=== PATIENT | female | born 1960 | race Caucasian/White ===

== ENCOUNTER → 2023-05-05 | Emergency (ER) | payer BC ==
[~2023-05-05] MED LIST: NA CHLORIDE 0.9% 1,000 ML ONE
[2023-05-05 12:28] LABS: Absolute Basophils 0.1 K/uL (0-0.5); Absolute Eosinophils 0.1 K/uL (0-0.5); Absolute Lymphocytes (CBC) 3.1 K/uL (0.7-4.9); Absolute Monocytes 0.6 K/uL (0.1-1.3); Absolute Neutrophil 8.7 K/uL (1.8-8.0); Basophils % 1.1 % (0-1.3); Eosinophils % 0.8 % (0-4.4); Hematocrit 38.6 % (36.0-45.0); Hemoglobin 12.7 g/dL (12.0-15.0); Lymphocytes % 24.5 % (15.3-44.8); MCH 29.1 pg (27.0-35.0); MCHC 32.8 g/dL (32.0-36.0); MCV 88.7 fL (80-100); MPV 9.1 fL (7.6-11.3); Monocytes % 4.5 % (3.3-12.3); Neutrophils % 69.1 % (41.7-73.7); Platelets 234 thou/uL (152-406); RBC Red Blood Cell Count 4.35 M/uL (3.86-4.86); Red Cell Distribution Width 13.4 % (12.1-15.2)
[2023-05-05 12:41] LABS: Sqamous Epithelial 20-50 /HPF (None Seen); Urine Bacteria <20 /HPF (<20); Urine Bilirubin NEGATIVE (Negative); Urine Blood 2+ (Negative); Urine Clarity Extremely Turbid (Clear); Urine Color Yellow (Yellow); Urine Culture Reflex Order NOT NEEDED; Urine Glucose NEGATIVE (Negative); Urine Ketones NEGATIVE (Negative); Urine Microscopic Reflex YN ORDER UMIC; Urine Mucus 2+ /HPF (None Seen); Urine Nitrite NEGATIVE (Negative); Urine Protein 1+ (Negative); Urine Urobilinogen Normal (Normal); Urine WBC >50 /HPF (<5); Urine pH 5.5 (5.0-7.0)
[2023-05-05 12:44] LABS: Albumin 3.6 g/dL (3.4-5.0); Anion Gap 9.6 mEq/L (5.0-15.0); Bilirubin Total 0.4 mg/dL (0.2-1.0); Globulin 3.5 g/dL (2.3-3.5); Potassium 3.6 mEq/L (3.5-5.1); Protein, Total 7.1 g/dL (6.4-8.2)
[2023-05-05 12:58] LABS: Differential Total Cells Count 100; White Blood Cell Scan OK (OK)
[2023-05-05 12:59] LABS: Blood Morphology Comment NOT SEEN (NOT SEEN); Lymphocytes 29 % (15-42); Monocytes 3 % (0-10); Platelet Estimate ADEQ; Segmented Neutrophils 67 % (40-80)
--- NOTE | 2023-05-05 13:23 | RAD REPORT ---
EXAM DESCRIPTION: CTAbdomen Pelvis W Contrast - 05/05/2023 1:12 pm CLINICAL HISTORY: Abdominal pain. ABD PAIN COMPARISON: Abdomen Pelvis W Contrast dated 05/09/2022; Abdomen Pelvis W Contrast dated 08/26/2020 ; Abdomen Pelvis W Contrast dated 02/12/2017; Abdomen Pelvis W Contrast dated 09/03/2016 TECHNIQUE: Biphasic CT imaging of the abdomen and pelvis was performed with 100 ml non-ionic IV cont rast. All CT scans are performed using dose optimization technique as appropriate and may include automated exposure control or mA/KV adjustment according to patient size. FINDINGS: The lung bases are clear. The liver, spleen, pancreas, adrenal glands and kidneys are within normal limits. No bowel obstruction, free air, free fluid or abscess. Moderate stool is present throughout the colon . Nonvisualized appendix. Prominent sigmoid diverticulosis coli is present without diverticulitis. No evidence of significant lymphadenopathy. No suspicious bony findings. IMPRESSION: No acute intra-abdominal or pelvic finding. Significant diverticulosis coli without diverticulitis.
--- NOTE | 2023-05-05 14:34 | ER ---
Nurse's Notes [facility] Name: Veronica Pratt Age: 62 yrs Sex: Female : 1960 Arrival Date: 05/05/2023 Time: 11:42 Bed 16 Private MD: Marcelino Michael C Diagnosis: UTI/ Urinary tract infection, site not specified Presentation: 05/04 11:47 Chief complaint: Patient states: Lower abdominal pain that radiates to low back for 3 nj1 weeks. Had seen PCP, dx with UTI, had a round of abx, felt somewhat better but bad again, on second round of abx, started . However, pt concerned because she had similar symptoms when she was diagnosed with diverticulitis in the past. 11:47 Coronavirus screen: Vaccine status: Patient reports receiving the 2nd dose of the covid nj1 vaccine. Ebola Screen: Patient denies travel to an Ebola-affected area in the 21 days before illness onset. Initial Sepsis Screen: Does the patient meet any 2 criteria? No. Patient's initial sepsis screen is negative. Does the patient have a suspected source of infection? No. Patient's initial sepsis screen is negative. Risk Assessment: Do you want to hurt yourself or someone else? Patient reports no desire to harm self or others. Onset of symptoms was April 2023. 11:47 Method Of Arrival: Ambulatory [facility] 11:47 Acuity: KEATON 3 nj Historical: - Allergies: 11:55 Cipro; nj1 - PMHx: 11:55 depressive disorder; nj1 - PSHx: 11:55 Cholecystectomy; right shoulder; nj1 - Immunization history:: Client reports receiving the 2nd dose of the Covid vaccine. - Social history:: Smoking status: Patient denies any tobacco usage or history of. Screenin:24 [facility] ED Fall Risk Assessment (Adult) History of falling in the last 3 months, db including since admission No falls in past 3 months (0 pts) Confusion or Disorientation No (0 pts) Intoxicated or Sedated No (0 pts) Impaired Gait No (0 pts) Mobility Assist Device Used No (0 pt) Altered Elimination No (0 pt) Score/Fall Risk Level 0 - 2 = Low Risk Oriented to surroundings, Maintained a safe environment. Abuse screen: Denies threats or abuse. Denies injuries from another. Nutritional screening: No deficits noted. Tuberculosis screening: No symptoms or risk factors identified. Assessment: 13:15 Reassessment: Patient appears in no apparent distress at this time. Patient and/or db family updated on plan of care and expected duration. Pain level reassessed. Patient is alert, oriented x 3, equal unlabored respirations, skin warm/dry/pink. General: Appears in no apparent distress. comfortable, Behavior is calm, cooperative. Pain: Complains of pain in abdomen. Neuro: Level of Consciousness is awake, alert, obeys commands, Oriented to person, place, time, situation. Cardiovascular: No deficits noted. Respiratory: No deficits noted. Airway is patent Respiratory effort is even, unlabored, Respiratory pattern is regular, symmetrical. GI: Abdomen is flat, Bowel sounds present X 4 quads. Abd is soft. : No deficits noted. No signs and/or symptoms were reported regarding the genitourinary system. EENT: No deficits noted. No signs and/or symptoms were reported regarding the EENT system. Derm: No deficits noted. No signs and/or symptoms reported regarding the dermatologic system. 14:00 Reassessment: Patient appears in no apparent distress at this time. Patient and/or db family updated on plan of care and expected duration. Pain level reassessed. Patient is alert, oriented x 3, equal unlabored respirations, skin warm/dry/pink. General: Appears in no apparent distress. comfortable, Behavior is calm, appropriate for age. 15:00 Reassessment: Patient appears in no apparent distress at this time. Patient and/or db family updated on plan of care and expected duration. Pain level reassessed. Patient is alert, oriented x 3, equal unlabored respirations, skin warm/dry/pink. General: Appears in no apparent distress. comfortable, Behavior is calm, cooperative. Vital Signs: 11:47 BP 162 / 97; Pulse 73; Resp 18; Temp 97(TE); Pulse Ox 100% on R/A; Weight 117.93 kg; nj1 Height 5 ft. 7 in. ; Pain 6/10; 13:10 BP 146 / 86; Pulse 76; Resp 18; Pulse Ox 98% on R/A; db 13:30 BP 128 / 79; Pulse 72; Resp 18; Pulse Ox 97% on R/A; db 14:30 BP 146 / 85; Pulse 72; Resp 18; Temp 97.8; Pulse Ox 99% ; db 11:47 Body Mass Index 40.72 (117.93 kg, 170.18 cm) nj1 11:47 Pain Scale: Adult sd1 ED Course: 11:44 Patient arrived in ED. mr 11:44 Marcelino Michael MD is Private Physician. mr 11:45 Alee Chaparro FNP-C is PSYCHIATRICP. kb 11:46 Hosea Clayton MD is Attending Physician. kb 11:55 Triage completed. nj1 11:55 Arm band placed on. nj1 12:10 Missed attempt(s): 22 gauge in left forearm. bc6 12:19 CBC with Diff Sent. bc6 12:19 CMP Sent. bc6 12:20 Lipase Sent. bc6 12:20 Urinalysis w/ reflexes Sent. bc6 12:20 Initial lab(s) drawn, by nc, sent to lab. Inserted saline lock: 22 gauge in left wrist, bc6 using aseptic technique. Blood collected. 13:14 CT Abd/Pelvis - IV Contrast Only In Process Unspecified. EDMS 14:33 Marcelino Michael MD is Referral Physician. kb 15:04 Bonnie Mariee, RN is Primary Nurse. db 15:24 Patient has correct armband on for positive identification. Bed in low position. Call db light in reach. Side rails up X 1. Provided Education on: LABS AND MEDICATIONS. Pulse ox on. NIBP on. Warm blanket given. 15:24 No provider procedures requiring assistance completed. IV discontinued, intact, db bleeding controlled, No redness/swelling at site. Administered Medications: 13:17 Drug: NS 0.9% IV 1000 ml IV at 1 bolus Per protocol; 1000 mL bolus Route: IV; Rate: 1 db bolus; Site: left forearm; 15:00 Follow up: Response: No adverse reaction; IV Status: Completed infusion; IV Intake: db 1000ml Medication: 15:24 VIS not applicable for this client. db Intake: 15:00 IV: 1000ml; Total: 1000ml. db Outcome: 14:33 Discharge ordered by . kb 15:24 Discharged to home ambulatory, db 15:24 Condition: stable 15:24 Discharge instructions given to patient, Instructed on discharge instructions, follow up and referral plans. 15:27 Patient left the ED. db Signatures: Dispatcher [employer] EDMS Alee Chaparro FNP-C WATERMASTER-Ckb Rosina Schreiber, Reg Reg mr Bonnie Mariee, RN RN db Luzmaria Rizvi bc6 Dori Corey RN RN nj1
--- NOTE | 2023-05-05 14:34 | EDPHYS ---
Physician Documentation [facility] Name: Veronica Pratt Age: 62 yrs Sex: Female : 1960 Arrival Date: 05/05/2023 Time: 11:42 Bed 16 Private MD: Marcelino Michael C ED Physician Hosea Clayton HPI: 05/04 14:45 This 62 yrs old Female presents to ER via Ambulatory with complaints of Abdominal Pain. kb 14:45 Pt is a 62 year old female who presents for pressure to lower abd. States it started 3 kb weeks ago, was seen by Dr Michael and put on macrobid. states symptoms improved but returned after completion of antibiotic. Was seen by Dr Michael again on and still tested positive for UTI, was placed on second round of macrobid. Comes in today concerned for diverticulitis. STates she has had it in the past with perforation and didn't have typical typical symptoms of fever, v/d, pain so she wanted to make sure that isn't what she had today. Historical: - Allergies: 11:55 Cipro; nj1 - PMHx: 11:55 depressive disorder; nj1 - PSHx: 11:55 Cholecystectomy; right shoulder; nj1 - Immunization history:: Client reports receiving the 2nd dose of the Covid vaccine. - Social history:: Smoking status: Patient denies any tobacco usage or history of. ROS: 14:34 Constitutional: As per HPI kb Exam: 14:34 Constitutional: This is a well developed, well nourished patient who is awake, alert, kb and in no acute distress. Head/Face: Normocephalic, atraumatic. ENT: Moist Mucous membranes Cardiovascular: Regular rate Respiratory: Respirations even and unlabored. No increased work of breathing. Talking in full sentences Abdomen/GI: Soft, non-tender. No distention Skin: Warm, dry with normal turgor. Normal color. MS/ Extremity: Pulses equal, no cyanosis. Neurovascular intact. Full, normal range of motion. Neuro: Awake and alert, GCS 15, oriented to person, place, time, and situation. Moves all extremities. Normal gait. Vital Signs: 11:47 BP 162 / 97; Pulse 73; Resp 18; Temp 97(TE); Pulse Ox 100% on R/A; Weight 117.93 kg; nj1 Height 5 ft. 7 in. ; Pain 6/10; 13:10 BP 146 / 86; Pulse 76; Resp 18; Pulse Ox 98% on R/A; db 13:30 BP 128 / 79; Pulse 72; Resp 18; Pulse Ox 97% on R/A; db 14:30 BP 146 / 85; Pulse 72; Resp 18; Temp 97.8; Pulse Ox 99% ; db 11:47 Body Mass Index 40.72 (117.93 kg, 170.18 cm) nj1 11:47 Pain Scale: Adult nj1 MDM: 11:46 Patient medically screened. kb 14:34 Differential diagnosis: diverticulitis, non-specific abd pain, Pyelonephritis, urinary kb tract infection. Data reviewed: vital signs, nurses notes. Counseling: I had a detailed discussion with the patient and/or guardian regarding the historical points, exam findings, and any diagnostic results supporting the discharge/admit diagnosis, lab results, radiology results, the need for outpatient follow up, a family practitioner, to return to the emergency department if symptoms worsen or persist or if there are any questions or concerns that arise at home. 05/04 12:00 Order name: CBC with Diff; Complete Time: 13:08 kb 05/04 12:00 Order name: CMP; Complete Time: 12:48 kb 05/04 12:00 Order name: Lipase; Complete Time: 12:48 kb 05/04 12:00 Order name: Urinalysis w/ reflexes; Complete Time: 12:48 kb 05/04 12:36 Order name: CBC Smear Scan; Complete Time: 13:08 EDMS 05/04 12:58 Order name: Manual Differential; Complete Time: 13:08 EDMS 05/04 12:00 Order name: CT Abd/Pelvis - IV Contrast Only; Complete Time: 13:25 kb 05/04 12:00 Order name: IV Saline Lock; Complete Time: 12:19 kb 05/04 12:00 Order name: Labs collected and sent; Complete Time: 12:19 kb Administered Medications: 13:17 Drug: NS 0.9% IV 1000 ml IV at 1 bolus Per protocol; 1000 mL bolus Route: IV; Rate: 1 db bolus; Site: left forearm; 15:00 Follow up: Response: No adverse reaction; IV Status: Completed infusion; IV Intake: db 1000ml Disposition Summary: 05/05/23 14:33 Discharge Ordered Notes: Location: Home kb Condition: Stable kb Diagnosis - UTI/ Urinary tract infection, site not specified kb Followup: kb - With: Emergency Department - When: As needed - Reason: Worsening of condition Followup: kb - With: Marcelino Michael MD - When: 2 - 3 days - Reason: Recheck today's complaints, Continuance of care, Re-evaluation by your physician Discharge Instructions: - Discharge Summary Sheet kb - Urinary Tract Infection, Adult, [id number] kb Forms: - Medication Reconciliation Form kb - Thank You Letter kb - Antibiotic Education kb - Prescription Opioid Use kb - Patient Portal Instructions kb - Leadership Thank You Letter kb Signatures: Dispatcher [employer] EDAlee Garcia, DIRECTOR TEEN POST-C DIRECTOR TEEN POST-Bonnie Farley, RN RN db Dori Corey RN RN nj1
[2023-05-05 15:59] VITALS: BP 146/85; TEMP 97.8; O2SAT 99
== END ==
LOC: ER 11:42
DX: N39.0 Urinary tract infection, site not specified (principal); Z88.1 Allergy status to other antibiotic agents
CPT/HCPCS: 85025; 81001; 36415; 83690; 80053; 74177; Q9967; J7030; 96360; 96361; 99284